=== PATIENT | male | born 1950 | race African-American/Black ===

== ENCOUNTER 2016-04-26 09:40 | Inpatient (IN) ==
--- NOTE | 2016-04-26 10:18 | Emergency Department Note ---
Darryl Dasilva Meredith, am scribing for, and in the presence of, Rehan Mendez MD 10: 14. Vanessa Dasilva James D, MD, personally performed the services described in this documentation, ascribed by Chloe Andrews in my presence, and it is both accurate and complete . Arrival - Arrival Chief Complaint: Neuro Stated Complaint: low sugar,high blood pressure ED Nursing Triage Note: Pt c/o blurred vision, slurred speech, unsteady gait, fall, and left arm weakness since Sunday. Blood sugar in triage 172. Mode of Arrival: Wheelchair Limitations: No Limitations Source: Patient, Old Records Reviewed, RN Notes Reviewed - History of Present Illness HPI Narrative: Pt is a 66 y/o black male reporting to the ED with c/o blurred vision, slurred speech, unsteady gait, and left arm weakness for the past 2 days. Onset of symptoms 48 hours ago on Sunday morning 04/24/2016. He denies any headache. Pt has a history of HTN, NIDDM, RA, and right hand amputation. His blood sugar at the time of triage was 172 mg/dL. Pt has not taken any of his medications today. Onset (ago): day(s) Consistency: constant Severity: moderate Allergies/Adverse Reactions: Allergies Allergy/AdvReac Type Severity Reaction Status Date / Time No Known Allergies Allergy Unverified 10/28/15 09:11 Home Medications: Home Medications Medication Instructions Recorded Confirmed Type No Known Home Medications [No 10/28/15 04/26/16 History Known Home Medications] Review of System - Review of System 12 point system: reviewed and no additional remarkable complaints except as stated - Review of System Eyes: Present: as per HPI, vision change (blurred vision ) Neurological: Present: as per HPI, weakness (left arm ), abnormal gait ( unsteady ), other (slurred speech) Medical,Surgical,& Family Hx - Medical History Cardio: History of: Hypertension HEENT: History of: Eye Problem (blurry) Endocrine: History of: Diabetes Mellitus (NIDDM) Rheumatology: History of;: Rheumatoid Arthritis Musculoskeletal: History of: Musculoskeletal Problems (right hand amputation) - Surgical History Orthopedic Surgeries: Patient denies;: Implanted Devices - Family History Family History: Denies;: Additional Family History - Social History Smoking Status: Current every day smoker Exam Physical Examination: GENERAL: This is a well-nourished, well-developed black male in no apparent distress. VITAL SIGNS: Temperature: 98.5, Pulse: 102, Respirations: 20, Blood pressure: 173/114, O2 Saturation: 98 HEENT: Head is normocephalic and atraumatic. Pupils are equally round and reactive to light. Extraocular movement are intact. Oropharynx is benign with moist mucous membranes. NECK: Neck is soft and supple without tenderness. There are no masses. There is no lymphadenopathy. LUNGS: Lungs are clear to auscultation bilaterally. Chest rises symmetrically. There is no chest wall tenderness. CV: Heart is regular rate and rhythm without murmurs, rubs, or gallops. ABDOMEN: Abdomen is soft, non-tender to palpation. There are no abnormal masses palpated. There is no organomegaly. Bowel sounds are present and active. SKIN: Skin is warm and dry. No rash. EXTREMITIES: Patient has full range of motion without tenderness. There is no pedal edema. NEUROLOGIC: Awake, alert, and oriented x4. Left facial weakness and slurred speech. PSYCHIATRIC: Normal affect. Normal mood. Vital Signs: Vital Signs Temperature 98.5 F 04/26/16 09:41 Pulse Rate 102 H 04/26/16 09:41 Respiratory Rate 18 04/26/16 10:10 Blood Pressure 173/114 04/26/16 09:41 O2 Sat by Pulse Oximetry 98 04/26/16 09:41 Course Course Narrative: Patient is not a candidate for TPA due to length of time since onset of symptoms. Results - Labs CBC & BMP: 04/26/16 10:36 04/26/16 10:36 Lab Results: I have reviewed the patients labs - EKG EKG results: interpreted by ERMD - Impressions EKG: Normal sinus rhythm with rate of 99, normal ST-T waves, normal axis. - Diagnostic Findings Procedure: Chest x-ray: image reviewed by me (No cardiomegaly, no pleural effusions.), CT: image reviewed by me (CT head: No acute intracranial lesion or hemorrhage.) Disposition Clinical Impression: Stroke, Essential hypertension Case discussed with: patient Disposition: Still a Patient Condition: Stable
[2016-04-26 10:47] LABS: Basophils # 0.1 10*3/uL (0.0-0.2); Eosinophils # 0.2 10*3/uL (0.0-0.87); Eosinophils % 2.9 % (0.00-10.9); Hematocrit 39.9 VOL% (42.0-52.0); Hemoglobin 13.3 GM/DL (14.0-18.0); Immature Granulocytes % 0.3 %; Immature Granulocytes Absolute 0.02 #; Lymphocytes # 2.6 10*3/uL (1.4-4.0); Lymphocytes % 32.2 % (21.2-54.2); Mean Corpuscular HGB Conc 33.3 GM/DL (32-36); Mean Corpuscular Hemoglobin 30 PG (27-34); Mean Corpuscular Volume 88.9 FL (87-102); Mean Platelet Volume 9.8 FL (9.6-12.0); Monocytes # 0.8 10*3/uL (0.11-0.8); Monocytes % 9.5 % (1.7-12.7); Neutrophils # 4.3 10*3/uL (1.4-7.4); Neutrophils % 54.1 % (38.7-73.9); Platelet Count 200 10*3/uL (130-400); Red Blood Count 4.49 10*6/uL (3.8-5.5)
--- NOTE | 2016-04-26 10:54 | CT Report ---
Exam: CT brain without contrast Date: April 26, 2016 Comparison: None Reason: Hemiparesis The patient is an Emergency Department patient on April 26, 2016. Preliminary report was provided by [facility]. Technique: Axial images of the head were obtained without the use of contrast. Total DLP was 970.1 mGy*cm. Findings: No hydrocephalus or midline shift is present. There is no evidence of recent intracranial hemorrhage, abnormal mass effect or an acute infarction. There may be minimal chronic microvascular ischemic change, and there is a questionable remote lacunar infarction within the right centrum semiovale. No acute osseous process is seen, but there is likely a remote fracture of the medial wall of the left orbit. There is mild mucosal thickening within the visualized left maxillary sinus. The mastoid air cells are clear. Impression: No acute intracranial process is identified. The CT exam was performed using one or more of the following dose reduction techniques: Automated exposure control and adjustment of the mA and/or kV according to patient size. PROCEDURE INTERPRETED AT [facility] DEPARTMENT OF RADIOLOGY Final Report Signed by: Dr. Dallin Chakraborty
--- NOTE | 2016-04-26 10:54 | XRay Report ---
Indication: Hypertension. Chest one view: Comparison 10/28/15. The heart size and mediastinal contour are normal. The lungs and pleural spaces are clear. Bones are unremarkable. Impression: Negative chest. PROCEDURE INTERPRETED AT [facility] DEPARTMENT OF RADIOLOGY Final Report Signed by: Evin Alcantar M.D.
[2016-04-26 10:58] LABS: INR 1.1; PT Patient Result 11.4 SECS; Partial Thromboplastin Time 24.5 SECS (0-40)
[2016-04-26 11:23] LABS: Alanine Aminotransferase 15 U/L (16-61); Albumin 3.4 G/DL (3.4-5.0); Alkaline Phosphatase 170 U/L (45-117); Aspartate Amino Transferase 14 U/L (0-37); Blood Urea Nitrogen 9 MG/DL (7-18); Calcium 9.1 MG/DL (8.5-10.1); Glucose 152 MG/DL (74-106); Osmolality,Calculated 289.7 MOS/KG (273-304); Potassium 4.3 MMOL/L (3.5-5.1); Sodium 145 MMOL/L (136-145); Total Protein 7.1 G/DL (6.4-8.3)
[2016-04-26] MEDS ORDERED: LABETALOL 20 MG/4 ML SYRINGE IV STA (11:27)
[2016-04-26] MEDS ORDERED: LABETALOL 20 MG/4 ML SYRINGE IV ONE (11:39)
--- NOTE | 2016-04-26 11:46 | EKG Report ---
Stationary ECG Study [facility] ER Test Date: 04/26/2016 11:44:29 AM Pat Name: SCHUYLER LIMA Department: Room: Gender: M Complaint Investigations Officer: HARJIT : 1950 Requested by: Rehan Barry Order Number: [id number] Reading MD: SILVERIO SALDIVAR Intervals [place] Rate: 99 P: 39 MD: 180 QRS: 46 QRSD: 83 T: 70 QT: 332 QTc: 388 Interpretive Statements SINUS RHYTHM Electronically Signed On 04-28-16 13:13:02 [employer] by SILVERIO SALDIVAR [email or web address]
[2016-04-26] MEDS ORDERED: ONDANSETRON 4 MG/2 ML VIAL IV PRN (11:56)
[2016-04-26] MEDS ORDERED: ZALEPLON 5 MG CAPSULE PO PRN (11:56)
[2016-04-26] MEDS ORDERED: DOCUSATE SODIUM 100 MG CAPSULE PO PRN (11:56)
[2016-04-26] MEDS ORDERED: LABETALOL 20 MG/4 ML SYRINGE IV PRN (11:56)
[2016-04-26] MEDS ORDERED: ACETAMINOPHEN 325 MG TABLET PO PRN (11:56)
[2016-04-26 12:00] LABS: Apearance,Urine CLEAR (Clear); Bilirubin,Urine Negative (Negative); Blood, Urine Negative (Negative); Glucose,Urine (UA) Negative (Negative); Ketones,Urine 5 mg/dL (Negative); Mucus,Urine Moderate /LPF (Occasional); Nitrite,Urine Negative (Negative); Protein,Urine Negative; RBC,Urine <1 /HPF (0-4); Squamous Epithelial Cell,Urine Occasional /HPF (0-10); Urine Color Yellow (Yellow); Urine Specific Gravity 1.024 (1.001-1.035); Urine Urobilinogen < 2.0 EU/DL (0.2-1.0); WBC,Urine 1 /HPF (0-6)
[2016-04-26 12:07] LABS: Barbiturates Screen,Urine Negative (Negative); Benzodiazepines Screen,Urine Negative (Negative); Cannabinoid Screen,Urine Positive (Negative); Opiate Screen,Urine Negative (Negative); Phencyclidine Screen,Urine Negative (Negative)
--- NOTE | 2016-04-26 12:18 | Hospitalist History & Physical ---
<Krystina Ta - Last Filed: 04/26/16 13:00> Assessment and Plan - Time spent with patient Time spent with patient: Greater than 30 minutes (due to assessment, plan and documentation.) (1) Stroke Status: Acute Assessment and plan: admit to monitored bed vte prophylaxis mri brain asa 81 mg neuro consultation carotids echo labetalol prn bp control Current Visit: Yes (2) Essential hypertension Status: Acute Current Visit: Yes History of Present Illness Chief complaint: facial weakness, left sided weakness. History of present illness: Mr. Parr is a 66 year old male who presented to the ED today with complaints of left sided facial weakness and left sided weakness. He states that his symptoms began a couple of days ago, and that he began to have facial droop, slurred speech and left sided weakness. He is hypertensive and has not seen a doctor in about a year. He states that he hasn't taken his BP medication in about a year either. His BP today is markedly elevated at 173/114. Labetalol has been ordered in the ED. Unsure if he has received this as of yet. He has a hx of traumatic right hand amputation from a work injury when he was 21, almost 22. He has good strong lap layer in the left hand, but left foot is slightly weaker than right. He does have a noticeable left facial droop. CT head was negative at this time. Mr. Parr denies a hx of atrial fibrillation or any heart problems. Denies any lung or liver problems. He does not drink, smoke or use illicits per his report. He lives at home. He does complain of having a couple of falls in the past couple of days due to imbalance issues. We will admit him to a monitored bed and obtain MRI, echo, carotids, begin on asa, lovenox, neuro consultation and labetalol prn for blood pressure control. Further plan and addendum to follow by Dr. Nguyen. Home Medications Medication Instructions Recorded Confirmed Type No Known Home Medications [No 10/28/15 04/26/16 History Known Home Medications] Allergies Allergy/AdvReac Type Severity Reaction Status Date / Time No Known Allergies Allergy Unverified 10/28/15 09:11 Medical,Surgical,& Family Hx - Medical History Cardio: History of: Hypertension HEENT: History of: Eye Problem (blurry) Endocrine: History of: Diabetes Mellitus (NIDDM) Rheumatology: History of;: Rheumatoid Arthritis Musculoskeletal: History of: Musculoskeletal Problems (right hand amputation) - Surgical History Orthopedic Surgeries: Patient denies;: Implanted Devices - Family History Family History: Denies;: Additional Family History - Social History Smoking Status: Smoker, status unknown Frequency of Alcohol Use: None Type of Drug Use: None Marital Status: Unknown Lives With:: Alone Functional capacity: uses cane/walker - Constitutional Constitutional: Present: weakness. Absent: chills, fever(s) - EENT Eyes: Absent: blurry vision, diplopia Ears: Absent: decreased hearing, tinnitus Nose, mouth and throat: Absent: dysphagia, headache(s) - Cardiovascular Cardiovascular: Absent: chest pain at rest, dyspnea, orthopnea - Respiratory Respiratory: Absent: dyspnea, hemoptysis - Gastrointestinal Gastrointestinal: Absent: abdominal pain, melena, nausea, vomiting - Genitourinary Genitourinary: Present: difficulty urinating (states that this is new for him). Absent: hematuria - Musculoskeletal Musculoskeletal: Absent: back pain, joint swelling - Neurological Neurological: Present: disequilibrium. Absent: confusion, dizziness - Psychiatric Psychiatric: Absent: anxiety, confusion, depression - Endocrine Endocrine: Absent: cold intolerance, heat intolerance - Hematologic/Lymphatic Hematologic/Lymphatic: Absent: easy bleeding, easy bruising Exam - Constitutional Vitals: Period Temp Pulse Resp BP Sys/Holland Pulse Ox Last 24 Hr 98.5 F 102 18-20 173/114 98 General appearance: normal weight, no acute distress - Head Head exam: Present: normal inspection, normocephalic - Eye Eye exam: Present: EOMI. Absent: scleral icterus Pupils: Present: ANDREW, normal accommodation - ENT ENT exam: Present: normal exam, normal oropharynx - Neck Neck exam: Present: normal inspection. Absent: lymphadenopathy - Respiratory Respiratory exam: Present: clear to auscultation bilaterally. Absent: accessory muscle use - Cardiovascular Cardiovascular exam: Present: regular rate and rhythm. Absent: carotid bruit - GI/Abdominal GI/Abdominal exam: Present: normal bowel sounds - Back Exam Back exam: Present: normal inspection. Absent: muscle spasm - Neurological Exam Neurological exam: Present: alert, oriented X3, reflexes normal. Absent: motor sensory deficit - Psychiatric Psychiatric exam: Present: normal affect, normal mood - Skin Skin exam: Present: normal color, warm, dry, intact Results - Labs CBC & BMP: 04/26/16 10:36 04/26/16 10:36 Lab Results: I have reviewed the past 24 hour labs Quality Measures - Stroke Onset of Symptoms Date: 04/24/16 Onset of Symptoms Time: 00:00 <Jeromy Nguyena - Last Filed: 04/26/16 14:42> History of Present Illness History of present illness: This is an addendum to H/P This is 66 yo AAm with h/o HTN , DMII on on kerrie meds at home, tobacco use and poor medical compliance presents to ER today with 2 days of left facial drop and left UE /LE weakness. His symptoms started on Sunday. He states he stink that he might have similar symptoms before but they did not last long. He is on on ASA at home. In ER, BP- 180/114, pt recived labetalol. CT head was no acute abnormalities. labs are unremarkable. Pt was admitted on stroke protocol. Neurology was consulted. He received 325 mg ASA in ER. Carotid US- no significant stenos. ECG- NSR. stroke protocol: MRI brain neuro check q 4 hrs PT/OT, speech therapy echo, telemetry daily ASA 81 mg lipid profile in am, A1c, start on SC insulin labetalol if SBP above 210/220 -allow permissive HTN if ok with neurology start on low dose of lisinopril and artovastain 40 mg daily consult neurology for additional recommendations Exam - Constitutional Vitals: Period Temp Pulse Resp BP Sys/Holland Pulse Ox Last 24 Hr 97.5 F 90-92 16-16 165-169/93-106 99-100 Results - Labs CBC & BMP: 04/26/16 10:36 04/26/16 10:36
--- NOTE | 2016-04-26 12:45 | Ultrasound Report ---
US carotid duplex BI Indication: Stroke. CAROTID ULTRASOUND Comparison: None. Findings: Grayscale, color Doppler and pulsed Doppler interrogation of the carotid and vertebral arteries performed. Severity of stenosis based on flow velocity measurements using NASCET criteria. Distal right ICA diameter: 5.5 mm Distal left ICA diameter: 5.3 mm Peak systolic flow velocities in centimeters per second are as follows: Right: CCA: 94 cm/s Proximal ICA: 40 Distal ICA: 53 ICA/CCA ratio: 0.6 Left: CCA: 83 cm/s Proximal ICA: 42 Distal ICA: 58 ICA/CCA ratio: 0.7 External carotid arteries: Both are patent with antegrade flow. Vertebral arteries: Both are patent with antegrade flow. Grayscale and color Doppler images: No significant focal plaque deposition identified, with normal color Doppler flow present. Pulse Doppler waveform interrogation: No significant spectral broadening. Impression: No hemodynamically significant stenosis of either ICA. PROCEDURE INTERPRETED AT [facility] DEPARTMENT OF RADIOLOGY Final Report Signed by: Evin Alcantar M.D.
[2016-04-26 13:08] LABS: Risk Ratio 2.64; VLDL CHOLESTEROL 14.8 MG/DL
[2016-04-26] MEDS ORDERED: INFLUENZA VIRUS VACCINE 0.5 ML SYRINGE IM ONE (14:00)
[2016-04-26] MEDS: ENOXAPARIN 40 MG/0.4 ML SYRINGE SUBCUT SCH (14:11)
[2016-04-26] MEDS ORDERED: DEXTROSE 50% 25 GM/50 ML VIAL IV PRN (14:22)
[2016-04-26] MEDS ORDERED: GLUCAGON 1 MG VIAL IM PRN (14:22)
[2016-04-26] MEDS ORDERED: SKIN HEALING OINT (AQUAPHOR) 50 GM TUBE TOP PRN (14:28)
--- NOTE | 2016-04-26 16:30 | Event Note ---
Pt gone for MRI
[2016-04-26] MEDS: INSULIN REGULAR 100 UNIT/ML SUBCUT SCH ×2 (16:57→21:00)
--- NOTE | 2016-04-26 17:07 | Magnetic Resonance Report ---
Referring physician: Danika Nguyen MD Exam: MRI brain with and without contrast Date: April 26, 2016 Comparison: CT brain without contrast April 26, 2016 Reason: CVA, blurred vision, slurred speech, unsteady gait, fall, left arm weakness since Sunday The patient is an inpatient who was admitted on April 26, 2016. Technique: MRI of the brain was performed with and without the use of 20 cc of IV Dotarem contrast. Obtained precontrast images include sagittal T1, axial diffusion-weighted, axial FLAIR, axial T2, axial gradient and axial T1 sequences. Postcontrast sequences include axial and coronal T1 sequences. A 1.5 Cristina magnet was used. Findings: There is a 0.7 cm focus of diffusion restriction with corresponding T2/FLAIR hyperintensity at the posterior limb of the right internal capsule. This is concerning for an acute lacunar type infarction. There is a 1.2 cm area of ill-defined diffusion restriction near the body of the corpus callosum on the left. There is also questionable mild FLAIR hyperintensity and mild ill-defined enhancement at the left aspect of the body of the corpus callosum. A subtle lesion such as an active demyelinating process, subacute infarction or neoplastic process cannot be excluded. A followup MRI of the brain is recommended. There is mild generalized cerebral atrophy/volume loss. Small scattered areas of T2/FLAIR hyperintensity are seen within the cerebral white matter bilaterally. This is nonspecific but likely represents mild chronic microvascular ischemic change. Less common considerations include a demyelinating process, vasculitis or viral process. No hydrocephalus or midline shift is present. There is no evidence of recent intracranial hemorrhage or an abnormal extra-axial fluid collection. There is a small remote lacunar type infarction within the right centrum semiovale. Major vascular flow voids are visualized. No additional areas of suspicious intracranial enhancement are identified. The orbits, sella and brainstem are unremarkable. There is minimal mucosal thickening within the ethmoid air cells and maxillary sinuses. A remote fracture of the medial wall of the left orbit is also suspected. There may be minimal fluid within the mastoid air cells bilaterally. Impression: 1. There is a 0.7 cm focus of diffusion restriction with corresponding T2/FLAIR hyperintensity at the posterior limb of the right internal capsule. This is consistent with an acute lacunar type infarction. 2. There is a small ill-defined area of diffusion restriction near the left aspect of the body of the corpus callosum. There is also questionable corresponding FLAIR hyperintensity and minimal enhancement at the left aspect of the body of the corpus callosum. This could represent artifact, but other considerations include a small subacute infarction, active demyelinating process or neoplasm. Of note, this is an unusual location for an infarction. A followup MRI of the brain at minimal is recommended since neoplasm is in the differential. 3. Mild generalized cerebral atrophy/volume loss and probable mild chronic microvascular ischemic change. There is also a remote lacunar type infarction within the right centrum semiovale. Findings were discussed with Kelsey Escobar on April 26, 2016 at 5 PM. PROCEDURE INTERPRETED AT [facility] DEPARTMENT OF RADIOLOGY Final Report Signed by: Dr. Dallin Chakraborty
--- NOTE | 2016-04-26 18:26 | ECHO Report ---
Emir Parr Exam Date: 04/26/2016 12:51 Referring Physician: Technologist: Ori HOWARD Age: 66 Ht (in): Wt (lb): Gender: M Exam Location: [facility] Echo Indications: CVA BP: / HR: Rhythm: Sinus Technical Quality: IMPRESSIONS Technically adequate study Normal chamber sizes 2-3+ concentric LVH Normal LV systolic function with ejection fraction estimated to be 60% without segmental wall motion normality Trace to 1+ mitral and tricuspid regurgitation with RVSP 19 mmHg plus RAP No obvious cardiac embolic source is noted MEASUREMENTS (Male / Female) Normal Values 2D ECHO LV Diastolic Diameter PLAX 5.3 cm 4.2 - 5.9 / 3.9 - 5.3 cm LV Systolic Diameter PLAX 4.3 cm LV Fractional Shortening PLAX 19.5 % IVS Diastolic Thickness 1.6 cm 0.6 - 1.0 / 0.6 - 0.9 cm LVPW Diastolic Thickness 1.1 cm 0.6 - 1.0 / 0.6 - 0.9 cm RV Internal Dim ED PLAX 3.4 cm Aortic Root Diameter 2.9 cm LA Systolic Diameter LX 3.2 cm 3.0 - 4.0 / 2.7 - 3.8 cm DOPPLER TR Peak Velocity 216.0 cm/s TR Peak Gradient 18.7 mmHg FINDINGS Left Ventricle Moderately increased septal wall thickness. Mild concentric left ventricular hypertrophy with diastolic dysfunction. Left ventricular ejection fraction is estim Right Ventricle Mildly increased right ventricular size. Right Atrium Normal right atrial size. Left Atrium The left atrium is mildly enlarged. Mitral Valve Mildly thickened mitral valve with mild mitral regurgitation. Aortic Valve Aortic valve sclerosis without stenosis or regurgitation. Tricuspid Valve Tricuspid regurgitation velocities suggest a PAP of 18.7 mmHg + RAP. Pulmonic Valve Morphologically normal pulmonic valve. Pericardium No pericardial effusion. Aorta Normal size aortic root and proximal ascending aorta. Lincoln Ambrocio (Electronically Signed) Final Date: 26 April 2016 18:25
[2016-04-27] MEDS: ATORVASTATIN 40 MG TABLET PO SCH ×2 (00:04→21:26)
[2016-04-27 05:11] LABS: Basophils # 0.1 10*3/uL (0.0-0.2); Basophils % 1.1 % (0.0-0.8); Eosinophils # 0.3 10*3/uL (0.0-0.87); Eosinophils % 4.2 % (0.00-10.9); Hematocrit 36.8 VOL% (42.0-52.0); Hemoglobin 12.1 GM/DL (14.0-18.0); Immature Granulocytes % 0.3 %; Immature Granulocytes Absolute 0.02 #; Lymphocytes # 2.4 10*3/uL (1.4-4.0); Lymphocytes % 37.2 % (21.2-54.2); Mean Corpuscular HGB Conc 32.9 GM/DL (32-36); Mean Corpuscular Hemoglobin 29 PG (27-34); Mean Corpuscular Volume 87.6 FL (87-102); Mean Platelet Volume 10.3 FL (9.6-12.0); Monocytes # 0.7 10*3/uL (0.11-0.8); Monocytes % 10.2 % (1.7-12.7); Neutrophils # 3.1 10*3/uL (1.4-7.4); Platelet Count 199 10*3/uL (130-400); White Blood Count 6.5 10*3/uL (4.5-13.71)
[2016-04-27 06:03] LABS: Albumin 3.2 G/DL (3.4-5.0); Calcium 8.6 MG/DL (8.5-10.1); Magnesium 2.1 MG/DL (1.8-2.4); Osmolality,Calculated 288.8 MOS/KG (273-304); Potassium 4.1 MMOL/L (3.5-5.1); Risk Ratio 2.44; Thyroid Stimulating Hormone 1.88 uIU/ml (0.358-3.74); Total Protein 6.7 G/DL (6.4-8.3); VLDL CHOLESTEROL 11.4 MG/DL
[2016-04-27] MEDS: PANTOPRAZOLE 40 MG TABLET PO SCH (08:47)
[2016-04-27] MEDS: LISINOPRIL 10 MG TABLET PO SCH (08:47)
[2016-04-27] MEDS: ASPIRIN EC 81 MG TABLET PO SCH (08:47)
[2016-04-27] MEDS: INSULIN REGULAR 100 UNIT/ML SUBCUT SCH ×4 (08:48→21:27)
--- NOTE | 2016-04-27 13:07 | Hospitalist Progress Note ---
Assessment and Plan (1) Acute lacunar infarction Status: Acute Assessment and plan: Patient did have an acutely inflamed neurology is yet to see a think he was going to MRI when they attempted to visit him. He's currently been started on aspirin and hypertensive medication. Once okay with neuro may determine if he' s a candidate for inpatient rehabilitation. Current Visit: Yes (2) Essential hypertension Status: Chronic Assessment and plan: We'll gradually lower his blood pressure as he is likely elevated with a significant period of time. Medications has currently been started on 10 to monitor. Current Visit: Yes Hospitalist: Subjective Interval history: Keshav is a 66-year-old male with a history of hypertension who presented with some weakness and aphasia and was found to have an acute lacunar infarct. He has been started on aspirin and medications for his hypertension. Thus for neck up negative workup as for his carotids and echocardiogram. MRI did reveal an acute infarct. We are slowly lowering his blood pressure has it is likely been quiet elevated over a significant period of time. Exam - Constitutional Vitals: Period Temp Pulse Resp BP Sys/Hol[place] Pulse Ox Last 24 Hr 97.3 F-98.6 F 72-92 16-20 137-165/80-97 97-99 General appearance: no acute distress - Head Head exam: Present: normocephalic, atraumatic - Eye Eye exam: Present: EOMI Pupils: Present: ANDREW - Respiratory Respiratory exam: Present: clear to auscultation bilaterally - Cardiovascular Cardiovascular exam: Present: regular rate and rhythm - GI/Abdominal GI/Abdominal exam: Present: normal bowel sounds, soft - Neurological Exam Neurological exam: Present: alert - Expanded Neurological Exam Speech: Present: expressive aphasia Coma Scale Eye Opening: Spontaneous Coma Scale Motor Response: Obeys Commands - Psychiatric Psychiatric exam: Present: normal affect, normal mood - Skin Skin exam: Present: warm, intact Results - Labs CBC & BMP: 04/27/16 04:25 04/27/16 04:25 Quality Measures - Stroke Onset of Symptoms Date: 04/24/16 Onset of Symptoms Time: 00:00 Specialty Discharge - Follow Up or Referrals
--- NOTE | 2016-04-27 14:34 | Neurology Consult Note ---
History of Present Illness History of present illness: Mr. Parr is a 66 year old right-handed -[place] gentleman with past medical history significant for diabetes, hypertension, diabetic neuropathy who presented to the ED with complaints of left sided weakness including face arm and leg. He states that his symptoms began a couple of days ago, and that he began to have facial droop, slurred speech and left sided weakness. He is hypertensive and has not seen a doctor in about a year. He is noncompliant with medications at that his doctor's visit. His BP today was markedly elevated at 173/114 in the emergency room. 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 CT head was negative at this time. Mr. Parr denies a hx of atrial fibrillation or any heart problems. Denies any lung or liver problems. He does not drink, smoke or use illicits per his report. He lives at home. He does complain of having a couple of falls in the past couple of days due to imbalance issues. MRI of the brain revealed a right subcortical acute infarct. Home Medications Medication Instructions Recorded Confirmed Type No Known Home Medications [No 10/28/15 04/26/16 History Known Home Medications] Allergies Allergy/AdvReac Type Severity Reaction Status Date / Time No Known Allergies Allergy Unverified 10/28/15 09:11 12 point system: reviewed and no additional remarkable complaints except as stated Medical,Surgical,& Family Hx - Medical History Cardio: History of: Hypertension HEENT: History of: Eye Problem (blurry) Endocrine: History of: Diabetes Mellitus (NIDDM) (not on medication) Rheumatology: History of;: Rheumatoid Arthritis Musculoskeletal: History of: Musculoskeletal Problems (right hand amputation) No history of: Amputation - Surgical History Orthopedic Surgeries: Patient denies;: Implanted Devices - Family History Family History: Reports;: Family Cancer (maternal cousin and daughter), Family Diabetes (mom and maternal grandmother), Family Hypertension (maternal grandmother) Denies;: Family Heart Disease, Family Psychiatric Problems, Family Stroke, Additional Family History - Social History Smoking Status: Smoker, status unknown Frequency of Alcohol Use: None Type of Drug Use: None Exam - Constitutional Vitals: Period Temp Pulse Resp BP Sys/Holland Pulse Ox Last 24 Hr 97.3 F-98.6 F 72-91 18-20 137-156/80-97 97-99 Exam: GENERAL: Patient is in no acute distress. NECK: Neck is supple. There is no JVD. No carotid bruits present. No thyroid masses. CVS: First and second heart sounds are normal. There is no S3 present. Regular rate and rhythm. RESPIRATORY: Lungs are clear to auscultation without any rales or rhonchi. ABDOMEN: Soft and non-tender. Bowel sounds are present. There is no hepatosplenomegaly. EXT: There is no palpable edema. Peripheral pulses are present. He has a right heel ulcer stage III Skin: No rashes Central Nervous system: General: Alert, awake and Oriented x 3 Speech: Fluent Comprehension: Intact and normal Facial expressions: Normal Cranial Nerves: CN1/Olfactory: Normal CN II/ Optic: Normal, Visual Wasserman unreliable CN III, and : ANDREW & EOMI CN V: Normal & intact CN VII: face is symmetric CNVIII: Normal CN XI/X/XI/XII: Intact and Normal Motor: Bulk and Tone is normal. Strength in the right 5/5 Strength in the left 4/5 Sensory: Decreased for all the modalities of PP, LT and temp sense Reflexes: 1+ and symmetrical Cerebellar function: Normal finger to nose and heel to heard testing. Gait: Able able to get up and walk without assistance. Does not require any DME either. Results - Labs CBC & BMP: 04/27/16 04:25 04/27/16 04:25 Assessment and Plan (1) Acute CVA (cerebrovascular accident) Status: Acute Assessment and plan: Start aspirin. Start Plavix 75 mg per daily Schedule outpatient PT and OT Current Visit: Yes (2) Diabetic ulcer of heel associated with type 1 diabetes mellitus, limited to breakdown of skin Status: Acute Assessment and plan: Consults surgery Current Visit: No (3) Essential hypertension Status: Chronic Assessment and plan: Continue current medications. Blood pressure is desirable at this time. Current Visit: Yes (4) Diabetic neuropathy Status: Acute Assessment and plan: We will do some outpatient workup. Follow-up in 4 weeks Current Visit: Yes Specialty Discharge - Follow Up or Referrals Follow up with: Robert Parker MD [Physician] - 1 Month
[2016-04-27] MEDS: ENOXAPARIN 40 MG/0.4 ML SYRINGE SUBCUT SCH (15:54)
--- NOTE | 2016-04-27 17:01 | General Surgery Consult Note ---
Assessment and Plan - Time spent with patient Time spent with patient: Less than 30 minutes (1) Diabetic ulcer of heel associated with type 1 diabetes mellitus, limited to breakdown of skin Status: Acute Assessment and plan: Impression: 1. Diabetic ulcer right heel 2. Callus of the distal part of the right first toe questionable ulcer 3. Diabetes 4. Recent CVA Plan: We will start local wound care to the ulcer and try to trim up the callus around the ulcer and the first toe. Additional debridements unclear at this time. Current Visit: No History of Present Illness Chief complaint: ulcer right heel History of present illness: Mr. Parr is a 66 year old male -[place] who presents with a stroke and a chronic nonhealing ulcer of the right heel. Apparently we saw him him in the past and he did not follow-up for additional care. Now returns with a stroke and we were asked to follow-up on this heel ulcer at this time. Unclear white count of care he has been providing this area. We'll start local wound care to this to try to clean it up and probably have to cannot trim the callus down. Home Medications Medication Instructions Recorded Confirmed Type No Known Home Medications [No 10/28/15 04/26/16 History Known Home Medications] Allergies Allergy/AdvReac Type Severity Reaction Status Date / Time No Known Allergies Allergy Unverified 10/28/15 09:11 Medical,Surgical,& Family Hx - Medical History Cardio: History of: Hypertension HEENT: History of: Eye Problem (blurry) Endocrine: History of: Diabetes Mellitus (NIDDM) (not on medication) Rheumatology: History of;: Rheumatoid Arthritis Musculoskeletal: History of: Musculoskeletal Problems (right hand amputation) No history of: Amputation - Surgical History Orthopedic Surgeries: Patient denies;: Implanted Devices - Family History Family History: Reports;: Family Cancer (maternal cousin and daughter), Family Diabetes (mom and maternal grandmother), Family Hypertension (maternal grandmother) Denies;: Family Heart Disease, Family Psychiatric Problems, Family Stroke, Additional Family History - Social History Smoking Status: Smoker, status unknown Frequency of Alcohol Use: None Type of Drug Use: None 12 point system: reviewed and no additional remarkable complaints except as stated Exam - Constitutional Vitals: Period Temp Pulse Resp BP Sys/Holland Pulse Ox Last 24 Hr 96.7 F-97.8 F 72-94 18-20 139-171/89-102 97-100 General appearance: no acute distress - Head Head exam: Present: normal inspection - ENT ENT exam: Present: normal exam - Neck Neck exam: Present: normal inspection - Respiratory Respiratory exam: Present: clear to auscultation bilaterally, rales - Cardiovascular Cardiovascular exam: Present: RRR - GI/Abdominal GI/Abdominal exam: Present: normal bowel sounds, soft - Extremities Exam Extremities exam: Present: normal inspection, other (ulcer of the right heel with a granulating base raised edges all were around with a thickened callus. Measures 3.5 cm with 3.5 cm x 0.8 cm. Has a thick callus on the right first toe and its unable to tell whether his any ulceration underneath it at this time.) - Neurological Exam Neurological exam: Present: alert, oriented X3, CN II-XII intact - Skin Skin exam: Present: normal color, warm, dry Quality Measures - Stroke Onset of Symptoms Date: 04/24/16 Onset of Symptoms Time: 00:00 Results - Labs CBC & BMP: 04/27/16 04:25 04/27/16 04:25 Lab Results: I have reviewed the past 24 hour labs Specialty Discharge - Follow Up or Referrals Follow up with: Robert Parker MD [Physician] - 1 Month
[2016-04-28] MEDS: INSULIN REGULAR 100 UNIT/ML SUBCUT SCH ×3 (08:39→17:21)
[2016-04-28] MEDS ORDERED: SODIUM HYPOCHLORITE 0.25% IRRIG 473 ML BOTTLE TOP SCH (09:00)
[2016-04-28] MEDS ORDERED: CARVEDILOL 6.25 MG TABLET PO SCH (09:00)
[2016-04-28] MEDS ORDERED: COLLAGENASE OINT 30 GM TUBE TOP SCH (09:00)
[2016-04-28] MEDS: PANTOPRAZOLE 40 MG TABLET PO SCH (09:55)
[2016-04-28] MEDS: ASPIRIN EC 81 MG TABLET PO SCH (09:55)
[2016-04-28] MEDS: LISINOPRIL 10 MG TABLET PO SCH (09:55)
--- NOTE | 2016-04-28 11:08 | Discharge Summary ---
Hospital Course - Hospital Course Hospital Course: Mr. Parr was admitted on 04/26 with an acute stroke. His CT was initially negative on arrival. MRI brain revealed an "acute lacunar type infarction". Carotid u/s was negative for significant stenosis. ECHO showed normal systolic function with EF of 60%. Dr. Parker with Neurology was consulted to evaluate Mr. Parr and he was started on ASA 325 mg, Plavix 75 mg PO daily and felt that he would benefit from outpatient Physical therapy. He does have a diabetic ulcer to his heel that Dr. Miles was consulted for as well. Dr Miles saw him on and started local wound care. Mr. Parr is ambulating great with Physical Therapy and is working with Speech Therapy as I speak. He has improved and is ready for discharge home with outpatient physical therapy. He will be discharged home on appropriate medications. - Time spent with patient Time with patient DS: Greater than 30 minutes (due to plan, doc and med rec.) Diagnosis - Discharge Diagnosis (1) Stroke Status: Acute (2) Essential hypertension Status: Chronic (3) Diabetic ulcer of heel associated with type 1 diabetes mellitus, limited to breakdown of skin Status: Acute Specialty Discharge - Follow Up or Referrals Follow up with: Robert Parker MD [Physician] - 1 Month Discharge Plan - Discharge Medications No Action No Known Home Medications [No Known Home Medications] - Follow Up or Referral Follow Up: Robert Parker MD [Physician] - 1 Month - Forms/Instructions Instructions: Ischemic Stroke (DC) Exam - Constitutional Vitals: Period Temp Pulse Resp BP Sys/Holland Pulse Ox Last 24 Hr 96.7 F-98 F 86-96 18-20 135-167/77-97 99-100 Discharge Results Labs on day of discharge: Labs from last 24 hours 04/28/16 04/27/16 04/27/16 06:43 19:10 16:04 POC Glucose 145 H 223 H 143 H 04/27/16 12:00 POC Glucose 200 H DS: Provider Date of admission: 04/26/16 11:57 Primary care physician: . No PCP Attending physician on admission: Danika Nguyen MD Consults: 04/26/16 13:53 Consult to Dietitian [CONS] Routine Reason for Dietitian: Other Consult Comment: admit score of 2 04/26/16 14:44 Consult to Case Mgmt/Social Srvs [CONS] Routine Reason for Case Mgmt/Social Srvs: Other Consult Comment: needs assistance with meds on dc 04/27/16 13:45 Consult to [facility], Educator [CONS] Routine Reason for Retirement Assistant: Diabetes Education 04/27/16 14:28 Consult to Physician [CONS] Routine Comment: Right Heel Ulcer Consulting Provider: Michael Miles Person Notified: Mone Date Notified: 04/27/16 Time Notified: 14:29 04/27/16 16:55 Consult to Wound Care - [place] [CONS] Routine Reason for Wound Care: Wound Care Management Consult Comment: ulcer of the right heel 04/28/16 11:03 Consult to Outpatient Therapy [CONS] Routine Reason for Outpatient Therapy: Physical Therapy Consult Comment: s/p stroke Discharging clinician: Krystina Ta NP Expected date of discharge: 04/28/16
--- NOTE | 2016-04-28 12:45 | Neurology Progress Note ---
Neurology - PN : Subjective Interval history: Patient doing fine from neuro standpoint. Able to get up and walk. Denies any new problems. Exam (Progress Note) - Constitutional Vitals: Period Temp Pulse Resp BP Sys/Holland Pulse Ox Last 24 Hr 97 F-98 F 86-96 18-20 135-167/77-94 99-100 Exam: GENERAL: Patient is in no acute distress. NECK: Neck is supple. There is no JVD. No carotid bruits present. No thyroid masses. CVS: First and second heart sounds are normal. There is no S3 present. Regular rate and rhythm. RESPIRATORY: Lungs are clear to auscultation without any rales or rhonchi. ABDOMEN: Soft and non-tender. Bowel sounds are present. There is no hepatosplenomegaly. EXT: There is no palpable edema. Peripheral pulses are present. He has a right heel ulcer stage III Skin: No rashes Central Nervous system: General: Alert, awake and Oriented x 3 Speech: Fluent Comprehension: Intact and normal Facial expressions: Normal Cranial Nerves: CN1/Olfactory: Normal CN II/ Optic: Normal, Visual Wasserman unreliable CN III, and : ANDREW & EOMI CN V: Normal & intact CN VII: face is symmetric CNVIII: Normal CN XI/X/XI/XII: Intact and Normal Motor: Bulk and Tone is normal. Strength in the right 5/5 Strength in the left 4/5 Sensory: Decreased for all the modalities of PP, LT and temp sense Reflexes: 1+ and symmetrical Cerebellar function: Normal finger to nose and heel to heard testing. Gait: Able able to get up and walk without assistance. Does not require any DME either. Results - Labs CBC & BMP: 04/27/16 04:25 04/27/16 04:25 Assessment and Plan (1) Acute CVA (cerebrovascular accident) Status: Acute Assessment and plan: Stop aspirin. 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 Blood pressure is desirable at this time. Current Visit: Yes (4) Diabetic neuropathy Status: Acute Assessment and plan: We will do some outpatient workup. Follow-up in 4 weeks Current Visit: Yes Quality Measures - Stroke Onset of Symptoms Date: 04/24/16 Onset of Symptoms Time: 00:00 Specialty Discharge - Follow Up or Referrals Follow up with: Robert Parker MD [Physician] - 1 Month
[2016-04-28] MEDS: ENOXAPARIN 40 MG/0.4 ML SYRINGE SUBCUT SCH (14:36)
[2016-04-28 20:01] VITALS: BP 141/89
== END 2016-04-28 18:55 | disposition home or self-care (01) | DRG 65 ==
LOC: N.ED 09:40 → N.EDINP 11:56 → N.4E 12:47
PROVIDERS: ADMIT Internal Medicine; ATTEND Internal Medicine